=== PATIENT | female | born 1965 | race Native Hawaiian/Other Pacific Islander ===

== ENCOUNTER 2017-03-04 12:33 | Emergency (ER) | payer OTHER ==
[~2017-03-04] VITALS: Ht 154.9 cm; Wt 60.3 kg
== END 2017-03-04 15:13 | disposition home or self-care (01) ==
LOC: ED 12:33
DX: S90.32XA Contusion of left foot, initial encounter (principal); W20.8XXA Other cause of strike by thrown, projected or falling object, initial encounter
CPT/HCPCS: 99282

== ENCOUNTER 2018-09-02 10:37 | Emergency (ER) | payer BC ==
[~2018-09-02] VITALS: Ht 154.9 cm; Wt 56.7 kg
[2018-09-02 10:43] VITALS: TEMP 98.1
[2018-09-02 11:15] LABS: PLATELET COUNT 298 K/uL (152-353)
[2018-09-02 11:24] LABS: POTASSIUM 4.2 mmol/L (3.6-5.2)
[2018-09-02 12:20] VITALS: BP 138/72
== END 2018-09-02 12:35 | disposition home or self-care (01) ==
LOC: ED 10:37
DX: K52.9 Noninfective gastroenteritis and colitis, unspecified (principal)
CPT/HCPCS: 74022; 80053; 81000; 85027; 96374; 99284; J2405

== ENCOUNTER 2023-05-12 07:44 | Outpatient (CLI) | payer BC | END 2023-05-12 19:11 | disposition home or self-care (01) | LOC: MRI 07:44 | PROVIDERS: ATTEND Nurse Practitioner Family | DX: M25.561 Pain in right knee (principal) | CPT/HCPCS: 36415; 82565; 84520; A9576 ==